=== PATIENT | male | born 1980 | race Caucasian/White ===

== ENCOUNTER 2023-02-05 08:33 | Day surgery (SDC) | payer BC, SELFPAY ==
--- NOTE | 2023-02-03 15:00 | P.CONAN_ITS ---
Documented by User: Valerie Carson NP 02/03/23 15:01 HPI - Anesthesia Eval Consult details Narrative: 42yo M for Colonoscopy [facility] Past Medical History Medical History Ulcerative colitis Surgical History Surgical History Hx of knee surgery H/O rhinoplasty Hx of colonoscopy Social History Social History Patient Tobacco Use Status: Never used Tobacco Meds Allergies Allergy/AdvReac Type Severity Reaction Status Date / Time penicillin V Allergy Unknown rash Verified 04/06/15 00:00 bee stings Allergy Unknown anaphylaxis Uncoded 04/06/15 00:00 Codeine Sulfate Allergy Unknown hives Uncoded 04/06/15 00:00 Inapsine Allergy Unknown hives Uncoded 04/06/15 00:00 morphine Allergy Unknown rash Uncoded 04/06/15 00:00 NSAID Allergy Unknown GIB Uncoded 04/06/15 00:00 Home Medications Medication Instructions Recorded Confirmed Last Taken Type Canasa 02/03/23 Unknown History mesalamine 0.375 gram 1.5 g PO DAILY 02/03/23 02/03/23 Unknown History capsule,extended release 24 hr Exam Exam Date and Time: February 03, 2023 1500 Assessment and Plan Assessment Anesthesia Assessment: Chart Reviewed Documented by User: Kim Gibbs MD 02/05/23 10:08 [facility] Active Problems Active Problems: No pertinent cardiac or respiratory history Past Medical History Medical History Ulcerative colitis Family History Family history of problems with anesthesia: No Surgical History Surgical History Hx of knee surgery H/O rhinoplasty Hx of colonoscopy History of Problems with Anesthesia: No Social History Social History Patient Tobacco Use Status: Never used Tobacco Meds Allergies Allergy/AdvReac Type Severity Reaction Status Date / Time penicillin V Allergy Unknown rash Verified 04/06/15 00:00 bee stings Allergy Unknown anaphylaxis Uncoded 04/06/15 00:00 Codeine Sulfate Allergy Unknown hives Uncoded 04/06/15 00:00 Inapsine Allergy Unknown hives Uncoded 04/06/15 00:00 morphine Allergy Unknown rash Uncoded 04/06/15 00:00 NSAID Allergy Unknown GIB Uncoded 04/06/15 00:00 Home Medications Medication Instructions Recorded Confirmed Last Taken Type Canasa 02/03/23 Unknown History mesalamine 0.375 gram 1.5 g PO DAILY 02/03/23 02/03/23 Unknown History capsule,extended release 24 hr Exam Height,Weight and Vital Signs: Height 5 ft 6 in Weight 81.647 kg Vital Signs Temp Pulse Resp BP Pulse Ox O2 Del Method 02/05/23 08:59 97.9 F 68 16 120/76 98 Room Air Airway Mallampati Class: II TM Dist: >3cm Neck ROM: Full Loose/Missing/Broken Teeth: No (Crowns back left bottom. Denies broken, loose, missing teeth) Heart: RRR Lungs: CTAB Assessment and Plan Assessment Anesthesia Assessment: Anesthesia Plan Discussed Final Anesthetic Review Family History of Problems with Anesthesia: No History of Problems with Anesthesia: No NPO: Yes ASA Class: II Final Preanesthetic Review: No Changes in Pt Med Stat, Meds/Allgs Chart Reviewed, Consent Obtained/Reviewed and Anes Risks/Benef Reviewed Patient Risk: Low Procedure Risk: Low Assessment/Block/Sedation in SS: Assess/Block/Sedation-SS Anesthetic Plan Anesthetic Plan: MAC: Disposition: Standard PACU
[2023-02-05 08:48] VITALS: BMI 29.0
[2023-02-05 08:54] VITALS: BMI 29.0
[2023-02-05 08:59] VITALS: BP 120/76; PULSE 68; RESP 16; TEMP 36.6; O2SAT 98
[2023-02-05] MEDS: Lactated Ringers 1,000 ML 100 ML IVCONT (09:12)
[2023-02-05 10:50] VITALS: BP 102/55; PULSE 71; RESP 16; TEMP 36.5; O2SAT 97
--- NOTE | 2023-02-05 10:53 | PM.OP ---
Brief Operative Note Date of Service: 02/05/23 Pre-op diagnosis: Ulcerative colitis Post-op diagnosis: other (Same, R/O Dysplasia) Procedure: Colonoscopy to the cecum and TI with biopsies Surgeon: Suleman Solomon MD Anesthesia: MAC Was an Respiratory Therapy Aide used for this Procedure?: No Estimated blood loss (mL): 2.0 Pathology: other (A. Ascending colon B. Transverse colon C. Descending colon D. Sigmoid colon E. Rectum) Condition: stable Disposition: PACU
[2023-02-05 11:05] VITALS: BP 105/61; PULSE 54; RESP 16; O2SAT 97
--- NOTE | 2023-02-05 11:12 | OP_ITS ---
DATE OF SERVICE: 02/05/2023 SURGEON: Suleman Solomon MD INDICATIONS: The patient presents for followup of longstanding ulcerative colitis and colorectal cancer screening. Full consent obtained from him for this, including risks of bleeding and perforation. PREOPERATIVE DIAGNOSIS: Longstanding ulcerative colitis and colorectal cancer screening. POSTOPERATIVE DIAGNOSIS: Longstanding ulcerative colitis and colorectal cancer screening, rule out dysplasia, minimal internal hemorrhoids. PROCEDURE PERFORMED: Colonoscopy to the cecum and terminal ileum with biopsies. ESTIMATED BLOOD LOSS: COMPLICATIONS: ANESTHESIA: Monitored anesthesia care. ASSISTANTS: SPECIMENS: DESCRIPTION OF PROCEDURE: The patient was placed in the left lateral decubitus position. The digital rectal exam revealed no abnormalities. The Olympus video pediatric colonoscope was entered into the rectum and advanced easily to the cecum. Once in the cecum, I did identify normal-appearing cecal pouch with appendiceal orifice and a normal-appearing ileocecal valve. The terminal ileum was cannulated and appeared normal. The scope withdrawn back in the colon. The entire cecum and ileocecal valve appeared normal. The scope was slowly withdrawn assessing all mucosal surfaces carefully. Preparation was excellent. Between 30 and 50 cm was an area of some mildly active colitis. However, the entire colon proximal to that all the way to the cecum and distal to that all the way to the rectum appeared normal. There was no sign of any other areas of colitis, polyps, nor angiodysplasia. Random biopsies were obtained in the ascending colon, transverse colon, descending colon, sigmoid colon and rectum. In the rectum, scope was retroflexed visualizing some minimal internal hemorrhoids, but no other pathology. The rectal mucosa appeared normal. The scope was straightened and withdrawn from the patient. He tolerated the procedure well and was returned to recovery area in stable condition. IMPRESSION: 1. Ulcerative colitis, rule out dysplasia. 2. Minimal internal hemorrhoids. PLAN: The results of biopsies will be checked. Assuming there is no dysplasia, I would recommend a repeat screening colonoscopy in 3 years. He was advised to continue his current regimen of the oral mesalamine and the mesalamine suppository. I advised him to see me in 1 year for followup office visit. He will call sooner as needed. He was advised to avoid all aspirin and NSAIDs long-term due to the underlying colitis. MD ANNE Huddleston/SUMMER / [phone]
[2023-02-05 11:20] VITALS: BP 125/85; PULSE 66; RESP 16; TEMP 36.5; O2SAT 100
== END 2023-02-05 12:20 | disposition home or self-care (01) ==
PROVIDERS: PCP Internal Medicine; Visit Provider Internal Medicine
PROC: 0DJD8ZZ Inspection of Lower Intestinal Tract, Via Natural or Artificial Opening Endoscopic (ICD-10-PCS; CPT 45378; principal; 2023-02-05 09:40)
DX: K51.90 Ulcerative colitis, unspecified, without complications (principal); K64.8 Other hemorrhoids; Z79.899 Other long term (current) drug therapy
CPT/HCPCS: 45380; 88305; J2250

== ENCOUNTER 2024-01-24 21:04 | Emergency (ER) | payer BC, SELFPAY ==
--- NOTE | 2024-01-24 | ECG_ITS ---
Test Reason : SYNCOPE Blood Pressure : / mmHG Vent. Rate : 070 BPM Atrial Rate : 070 BPM P-R Int : 158 ms QRS Dur : 090 ms QT Int : 400 ms P-R-T Axes : 053 079 035 degrees QTc Int : 432 ms Normal sinus rhythm Normal ECG No previous ECGs available Referred By: Generic ED Physician Electronically Signed By:PRAVEEN PLUMMER
--- NOTE | ~2024-01-24 | CT_ITS ---
EXAMINATION: CT HEAD WITHOUT CONTRAST CLINICAL INFORMATION: Syncope. Headache. COMPARISON: None available. TECHNIQUE: Contiguous axial imaging was performed from the skull base to vertex without intravenous administration of contrast. This CT examination was performed using dose optimization techniques as appropriate, variously including the following: *Automated exposure control *Adjustment of mA and/or kV according to patient size (this includes techniques or standardized protocols for targeted exams where dose is matched to indication/reason for exam; i.e. extremities or head) *Use of iterative reconstruction technique DLP: 678 mGy-cm FINDINGS: There is no acute intracranial hemorrhage. There is no evidence of acute/subacute cerebral or cerebellar infarction. There is no mass effect or midline shift. There is no extra-axial fluid collection. The ventricles are normal in size. The orbits are symmetric and within normal limits. The calvarium is intact. The visualized paranasal sinuses are well-aerated. Mastoid air cells are clear. CT/CT head/brain wo IV con IMPRESSION: No acute intracranial abnormality. Electronically signed by: Gerry Lehman DO 01/24/2024 11:52 PM EDT
--- NOTE | ~2024-01-24 | XR_ITS ---
EXAMINATION: XR CHEST CLINICAL INFORMATION: Syncope. COMPARISON: None available. TECHNIQUE: Frontal view of the chest was obtained. FINDINGS: The heart is normal in size. There are hazy opacities at the lung bases which may represent subsegmental atelectasis. No dense consolidation. No large pleural effusion. No pneumothorax. No acute osseous abnormality. XR/XR chest 1V IMPRESSION: Hazy opacities at the lung bases for which subsegmental atelectasis is suspected. Electronically signed by: Gerry Lehman DO 01/24/2024 11:54 PM EDT
[2024-01-24 21:13] VITALS: BP 111/72; PULSE 74; RESP 17; TEMP 36.6; O2SAT 100; BMI 29.0
--- NOTE | 2024-01-24 21:22 | ED_ITS ---
HPI - General Adult General Chief complaint: Syncope Stated complaint: loss consciousness about 1 hr ago/out for a minute Time Seen by Provider: 01/24/24 22:07 Source: patient and family (, Bea) Mode of arrival: ambulatory Limitations: no limitations History of Present Illness ED Provider: Dr. Valentin Scott HPI narrative: 43-year-old male with no significant past medical history who presents emergency department for evaluation of a syncopal episode. The patient states that he rarely uses marijuana edibles but took a marijuana gummy at 17:00 hours. He states he was at dinner from 18:00 hours to 1900 hours. He states that around 19:00 hours he felt like the room was spinning. According to his , he began to slurry speech and then he lost consciousness. There friend, who is a police academy program coordinator noted that the patient was fully unconscious. He was placed on the floor and did have a palpable pulse which became stronger when he woke up. The states that he was loss of consciousness lasted approximately 1 minute. When he woke up he did not know where he was and had no memory of the events. He initially was confused but then his speech was comprehensible and he was back to normal. There was no tremors noted by the patient's . There was no postictal period noted. The patient's point of care glucose was 102. The patient initially refused transport to the hospital. When his was driving them home patient felt ill again, had nausea and vomiting. He then felt lethargic therefore his brought him to the emergency department for evaluation. Patient states he has had at least 3 other syncopal episodes in the past over the last 5-10 years. Three these episodes were triggered by pain. Patient states that he exercises daily in his had any significant change in his ability to exercise. He has had no exertional chest pain. He states he did have 1 episode of chest pain at work but he believes it was related to stress. He states that sometime earlier in the week he did have 1 episode of vertigo like symptoms which resolved after minutes. Related Data Home Medications ?Medication ?Instructions ?Recorded ?Confirmed Canasa 02/03/23 mesalamine 0.375 gram 1.5 g PO DAILY 02/03/23 02/03/23 capsule,extended release 24 hr Allergies Allergy/AdvReac Type Severity Reaction Status Date / Time penicillin V Allergy Unknown rash Verified 01/24/24 21:18 bee stings Allergy Unknown anaphylaxis Uncoded 01/24/24 21:18 Codeine Sulfate Allergy Unknown hives Uncoded 01/24/24 21:18 Inapsine Allergy Unknown hives Uncoded 01/24/24 21:18 morphine Allergy Unknown rash Uncoded 01/24/24 21:18 NSAID Allergy Unknown GIB Uncoded 01/24/24 21:18 Review of Systems 2 Review of Systems: Social history: The patient was in process assistant fire services plumber. He was in his Bea is here in the emergency department. His father is Dr. Aggarwal who was an ob gyn on staff here at [facility]. Patient denies tobacco use. He states that he drinks alcohol once a month. He states that he rarely uses marijuana products. PMFSH Past Medical History Medical History Ulcerative colitis Surgical History Hx of knee surgery H/O rhinoplasty Hx of colonoscopy Social History Social History Patient Tobacco Use Status: Never used Tobacco Advance Directives: No Advance Directives Information Provided: Yes Do you have a plan to hurt others: No Plan Physical Exam ED Vital Signs: Vital Signs - 24 hr 01/24/24 21:13 Temperature 97.9 F Pulse Rate 74 Respiratory Rate 17 Blood Pressure 111/72 Pulse Oximetry 100 Oxygen Delivery Method Room Air BMI result Body Mass Index 29.0 Vital signs were normal Exam: General: Awake, alert in no distress Head: Normocephalic, atraumatic EENT: PERRL, Lids normal, sclera normal, conjunctiva normal, nose normal , ears normal, throat without erythema or exudates Neck: Supple, no adenopathy Lung: breath sounds symmetric, no wheezing, rales or rhonchi Chest: symmetric movement, nontender Heart: regular rate and rhythm, normal S1, S2 no murmurs or rubs Abdomen: soft, non-tender, nondistended, normal bowel sounds Back: no vertebral tenderness, no CVAT Extremities: no deformities, moves all extremities symmetrically Neuro: General: Awake, alert, in no distress, answers all questions appropriately Cranial nerves: Cranial nerves 2-12 are intact Strength: 5/5 symmetric in upper and lower extremities. Cerebellar: Good cuxeuz-td-haxl-to-finger, good rapid finger movement, normal heel to hennessy. Able to stand without difficulty. Psych: Pleasant, cooperative Course Course Course Narrative: RME performed by Azalia Jorge PA-C. Patient is a 43 year old assigned male at presenting to the emergency department after a syncopal episode. Patient states he was out to dinner when he had a syncopal episode and passed out for at least a minute. Has an extensive familial cardiac history. Continues to feel weird. Detailed physical exam and review of systems are deferred to the psychiatric clinician. EKG, labs, imaging, and swabs ordered. fuse cup expander aware. Medications Administered Discontinued Medications Generic Name Dose Route Start Last Admin Trade Name Freq PRN Reason Stop Dose Admin Sodium Chloride 1,000 mls @ 999 mls/hr 01/24/24 22:42 01/24/24 23:44 Ns IV 01/24/24 23:42 999 mls/hr .Q1H1M STA Administration Medical Decision Making Medical Decision Making MDM Narrative: 43-year-old male with no significant past medical history who presents emergency department for evaluation of a syncopal episode. The patient states that he rarely uses marijuana edibles but took a marijuana gummy at 17:00 hours. Patient then had a syncopal episode at around 19:00 hours witnessed by his and a friend who was a police academy program coordinator. The patient had loss of consciousness for 1 minute. Patient had palpable pus which was stronger when he woke up according to the police academy program coordinator. Paramedics noted that the patient had a point of care glucose of 102. Patient initially refused transport but when he was being driven home by his he had an episode of lightheadedness, nausea and vomiting and felt weak after this event so he came to the emergency department. Patient was had 3 syncopal episodes in the past triggered by pain. Patient's vital signs were normal. Physical examination including a normal neurologic exam and normal cerebellar exam Differential diagnosis: ?Includes but is not limited to tachyarrhythmia, bradyarrhythmia, myocardial infarction, myocardial ischemia, stroke, seizure, vertigo, vasovagal syncope, anemia, electrolyte abnormalities, dehydration, adverse reaction to edible THC product Course: 23:14 My interpretation patient's laboratory evaluation as follows: WBC elevated 13,200. No anemia with an H&H of 14 and 44.9. BUN was normal at 13. Creatinine was elevated 1.49. GFR was 52. Troponin detectable but not elevated at 4.2. My independent interpretation patient's chest x-ray and CT scan of the brain without IV contrast is as follows: Chest x-ray-no acute disease. CT scan of the brain-no stroke, bleed or mass effect Patient's 12 EKG was unremarkable. Patient's presentation is most likely secondary to vasovagal syncope triggered by the THC edible and dehydration based on his elevated creatinine. I will check a 3 hour troponin at 01:00 hours. I also ordered urinalysis to rule out protein area as the cause of his elevated creatinine. Patient was given normal saline 1 L IV and will be kept on a cardiac and O2 saturation monitor while he is here in the emergency department. 01:51 Patient's repeat 3 hour troponin was 2.7 which is reassuring suggesting the he did not have myocardial injury is the cause of his syncopal episode. Patient has urine revealed trace protein and elevated specific gravity. I did discuss these findings with the patient and his . The patient's syncope was most likely vasovagal triggered by the THC edible. Patient was advised to avoid these in the future. He was given printed and verbal instructions and discharged home. Admission/Observation Consideration of admission/observation: Escalation of care including admission/observation considered (Yes) Lab Data MDM Lab Attestation statement: I reviewed the patient's lab results. 01/24/24 21:51 01/24/24 21:51 Labs: Lab Results 01/24/24 01/24/24 01/25/24 Range/Units 21:51 23:51 01:04 WBC 13.2 H (4.8-10.8) X10*3/uL RBC 5.26 (4.60-5.80) X10*6/uL Hgb 14.8 (14.0-18.0) g/dl Hct 44.9 (42.0-52.0) % MCV 85.4 (80.0-98.0) fL MCH 28.1 (27.0-33.0) pg MCHC 33.0 (31.0-36.0) g/dl RDW 12.6 (11.0-16.0) % Plt Count 234 (160-400) X10*3/uL MPV 10.8 (9.4-12.4) fL Immature Gran % (Auto) 0.5 H (0.0-0.4) % Neut % (Auto) 84.9 H (45-73) % Lymph % (Auto) 8.6 L (20-40) % [place] % (Auto) 5.2 (2-11) % Eos % (Auto) 0.3 (0-4) % Baso % (Auto) 0.5 (0-2) % Lymph # (Auto) 1.1 L (1.2-4.9) X10*3/uL [place] # (Auto) 0.7 (0.1-1.2) X10*3/uL Eos # (Auto) 0.0 (0.0-0.4) X10*3/uL Baso # (Auto) 0.1 (0.0-0.2) X10*3/uL Abs Immat Gran (auto) 0.07 H (0.00-0.03) X10*3/uL Absolute Neuts (auto) 11.2 H (2.0-8.3) x10*3/uL Absolute Nucleated RBC 0.000 (0.0-0.012) X10*3/uL Nucleated RBC % (auto) 0.0 (0.0-0.2) /100WBC Sodium 141 (135-145) mmol/L Potassium 4.0 (3.3-5.1) mmol/L Chloride 107 (96-108) mmol/L Carbon Dioxide 28 (22-29) mmol/L Anion Gap 10 L (12-20) BUN 13 (9-16) mg/dL Creatinine 1.49 H (0.5-1.4) mg/dL Estim Creat Clear Calc 65.4 Estimated GFR 52 Random Glucose 125 H (60-115) mg/dL Calcium 9.4 (8.4-10.2) mg/dL Magnesium 2.1 (1.6-2.6) mg/dL Total Bilirubin 0.8 (0.0-1.0) mg/dL AST 18 (5-37) U/L ALT 10 (0-40) U/L Alkaline Phosphatase 61 (39-117) U/L Total Creatine Kinase 105 (38-174) U/L Troponin I High Sens 4.2 2.7 (<3.5-35.0) ng/L Total Protein 7.1 (6.5-8.0) g/dL Albumin 4.2 (3.5-5.0) g/dL Urine Color Yellow Urine Appearance Cloudy Urine pH 8.5 (5.0-9.0) Ur Specific [place] >= 1.030 H (1.005-1.025) Urine Protein Trace (Neg-Trace) mg/dL Urine Glucose (UA) Negative (Negative) mg/dL Urine Ketones Trace (Negative) mg/dL Urine Blood Negative (Negative) Urine Nitrite Negative (Negative) Ur Leukocyte Esterase Negative (Negative) Independent Interpretation I performed an independent interpretation of an: EKG Interpretation: My interpretation the patient's 12 EKG done at 21:25 hours is as follows: Normal sinus rhythm rate of 70, normal VA interval, QRS duration and QTC interval, no ST segment elevation, no ST segment depression, no significant T- wave abnormalities, no PACs, no PVCs-this is a normal EKG. My independent interpretation patient's chest x-ray is as follows: No acute disease Radiology Impression Discussion of test interpretation with radiology: I have reviewed the radiologist's reading. Radiologist Impression: XR chest 1V IMPRESSION: Hazy opacities at the lung bases for which subsegmental atelectasis is suspected. Dictated By: Gerry Lehman Jr, DO Independent Historian Clinical information obtained from an independent historian. History obtained from or confirmed by: Spouse Discharge Plan Discharge Clinical Impression: Vasovagal syncope Patient Disposition: Home, Self-Care Additional Instructions: Your blood work did reveal a slight elevation in your creatinine of 1.49 (upper limit of normal is 1.4). Your urinalysis revealed trace protein which is reassuring and does not suggest that you have kidney disease as the cause of your passing out. Your high sensitive troponin I (marker of heart damage) was 4.2 and 3 hours later was 2.7 , which is normal and suggest that you did not have heart injury/heart attack as the cause of your passing out. You most likely had a vasovagal syncope (fainting) triggered by the THC edible. I recommend that you avoid THC in the future since this could cause you to have another syncopal episode. Follow-up with your doctor in 2 days. Please return to the emergency department if your symptoms get worse or if you develop any symptoms that are concerning to you. Prescriptions: No Action mesalamine 0.375 gram capsule,extended release 24hr 1.5 g PO DAILY [facility]asa Print Language: Uzbek
[2024-01-24 21:56] LABS: MANUAL DIFF FLAG NO
[2024-01-24 22:01] LABS: Basophils Absolute Auto 0.1 X10*3/uL (0.0-0.2); Basophils Percent Auto 0.5 % (0-2); Eosinophils Percent Auto 0.3 % (0-4); Hematocrit 44.9 % (42.0-52.0); Hemoglobin 14.8 g/dl (14.0-18.0); Imm Gran Abs Auto 0.07 X10*3/uL (0.00-0.03); Imm Gran Pct Auto 0.5 % (0.0-0.4); Lymphocytes Absolute Auto 1.1 X10*3/uL (1.2-4.9); Lymphocytes Percent Auto 8.6 % (20-40); Mean Corpuscular Hemoglobin 28.1 pg (27.0-33.0); Mean Corpuscular Volume 85.4 fL (80.0-98.0); Mean Platelet Volume 10.8 fL (9.4-12.4); Monocytes Absolute Auto 0.7 X10*3/uL (0.1-1.2); Monocytes Percent Auto 5.2 % (2-11); Neutrophils Absolute Auto 11.2 x10*3/uL (2.0-8.3); Neutrophils Percent Auto 84.9 % (45-73); Platelet Count 234 X10*3/uL (160-400); Red Blood Count 5.26 X10*6/uL (4.60-5.80); Red Cell Distribution Width 12.6 % (11.0-16.0); White Blood Count 13.2 X10*3/uL (4.8-10.8)
--- NOTE | 2024-01-24 22:10 | ED_ITS ---
HPI - Syncope General Chief Complaint: Syncope Stated Complaint: loss consciousness about 1 hr ago/out for a minute Time Seen by Provider: 01/24/24 22:07 History of Present Illness ED Provider: Dr. Valentin Scott HPI narrative: this is a duplicate chart. Related Data Home Medications ?Medication ?Instructions ?Recorded ?Confirmed Canasa 02/03/23 mesalamine 0.375 gram 1.5 g PO DAILY 02/03/23 02/03/23 capsule,extended release 24 hr Allergies Allergy/AdvReac Type Severity Reaction Status Date / Time penicillin V Allergy Unknown rash Verified 01/24/24 21:18 bee stings Allergy Unknown anaphylaxis Uncoded 01/24/24 21:18 Codeine Sulfate Allergy Unknown hives Uncoded 01/24/24 21:18 Inapsine Allergy Unknown hives Uncoded 01/24/24 21:18 morphine Allergy Unknown rash Uncoded 01/24/24 21:18 NSAID Allergy Unknown GIB Uncoded 01/24/24 21:18 PMFSH Past Medical History PMFSH Narrative: social history: He denies tobacco use. He occasionally drinks alcohol. He rarely uses marijuana products. Medical History Ulcerative colitis Surgical History Hx of knee surgery H/O rhinoplasty Hx of colonoscopy Social History Social History Patient Tobacco Use Status: Never used Tobacco Advance Directives: No Advance Directives Information Provided: Yes Do you have a plan to hurt others: No Plan Physical Exam 2 Vital Signs: Vital Signs: Last Vital Signs Temp 98.3 F 01/25/24 06:13 Pulse 72 01/25/24 06:13 Resp 13 01/25/24 06:13 BP 105/67 01/25/24 06:13 Pulse Ox 97 01/25/24 06:13 O2 Del Method Room Air 01/25/24 06:13 BMI result Body Mass Index 29.0 Medications Administered Discontinued Medications Generic Name Dose Route Start Last Admin Trade Name Freq PRN Reason Stop Dose Admin Sodium Chloride 1,000 mls @ 999 mls/hr 01/24/24 22:42 01/24/24 23:44 Ns IV 01/24/24 23:42 999 mls/hr .Q1H1M STA Administration Medical Decision Making Lab Data 01/24/24 21:51 01/24/24 21:51 Labs: Lab Results 01/24/24 01/24/24 01/25/24 Range/Units 21:51 23:51 01:04 WBC 13.2 H (4.8-10.8) X10*3/uL RBC 5.26 (4.60-5.80) X10*6/uL Hgb 14.8 (14.0-18.0) g/dl Hct 44.9 (42.0-52.0) % MCV 85.4 (80.0-98.0) fL MCH 28.1 (27.0-33.0) pg MCHC 33.0 (31.0-36.0) g/dl RDW 12.6 (11.0-16.0) % Plt Count 234 (160-400) X10*3/uL MPV 10.8 (9.4-12.4) fL Immature Gran % (Auto) 0.5 H (0.0-0.4) % Neut % (Auto) 84.9 H (45-73) % Lymph % (Auto) 8.6 L (20-40) % [place] % (Auto) 5.2 (2-11) % Eos % (Auto) 0.3 (0-4) % Baso % (Auto) 0.5 (0-2) % Lymph # (Auto) 1.1 L (1.2-4.9) X10*3/uL [place] # (Auto) 0.7 (0.1-1.2) X10*3/uL Eos # (Auto) 0.0 (0.0-0.4) X10*3/uL Baso # (Auto) 0.1 (0.0-0.2) X10*3/uL Abs Immat Gran (auto) 0.07 H (0.00-0.03) X10*3/uL Absolute Neuts (auto) 11.2 H (2.0-8.3) x10*3/uL Absolute Nucleated RBC 0.000 (0.0-0.012) X10*3/uL Nucleated RBC % (auto) 0.0 (0.0-0.2) /100WBC Sodium 141 (135-145) mmol/L Potassium 4.0 (3.3-5.1) mmol/L Chloride 107 (96-108) mmol/L Carbon Dioxide 28 (22-29) mmol/L Anion Gap 10 L (12-20) BUN 13 (9-16) mg/dL Creatinine 1.49 H (0.5-1.4) mg/dL Estim Creat Clear Calc 65.4 Estimated GFR 52 Random Glucose 125 H (60-115) mg/dL Calcium 9.4 (8.4-10.2) mg/dL Magnesium 2.1 (1.6-2.6) mg/dL Total Bilirubin 0.8 (0.0-1.0) mg/dL AST 18 (5-37) U/L ALT 10 (0-40) U/L Alkaline Phosphatase 61 (39-117) U/L Total Creatine Kinase 105 (38-174) U/L Troponin I High Sens 4.2 2.7 (<3.5-35.0) ng/L Total Protein 7.1 (6.5-8.0) g/dL Albumin 4.2 (3.5-5.0) g/dL Urine Color Yellow Urine Appearance Cloudy Urine pH 8.5 (5.0-9.0) Ur Specific [place] >= 1.030 H (1.005-1.025) Urine Protein Trace (Neg-Trace) mg/dL Urine Glucose (UA) Negative (Negative) mg/dL Urine Ketones Trace (Negative) mg/dL Urine Blood Negative (Negative) Urine Nitrite Negative (Negative) Ur Leukocyte Esterase Negative (Negative) Independent Interpretation I performed an independent interpretation of an: EKG Interpretation: My independent interpretation the patient's 12 EKG done at 21:25 hours is as follows: Normal sinus rhythm with a rate of 70, normal ID interval, QRS duration QTC interval no ST segment elevation, no ST segment depression, no PACs, no PVCs. This is a normal EKG. Discharge Plan Discharge Clinical Impression: Vasovagal syncope Patient Disposition: Home, Self-Care Additional Instructions: Your blood work did reveal a slight elevation in your creatinine of 1.49 (upper limit of normal is 1.4). Your urinalysis revealed trace protein which is reassuring and does not suggest that you have kidney disease as the cause of your passing out. Your high sensitive troponin I (marker of heart damage) was 4.2 and 3 hours later was 2.7 , which is normal and suggest that you did not have heart injury/heart attack as the cause of your passing out. You most likely had a vasovagal syncope (fainting) triggered by the THC edible. I recommend that you avoid THC in the future since this could cause you to have another syncopal episode. Follow-up with your doctor in 2 days. Please return to the emergency department if your symptoms get worse or if you develop any symptoms that are concerning to you. Prescriptions: No Action mesalamine 0.375 gram capsule,extended release 24hr 1.5 g PO DAILY [facility] Interventions: ED Discharge Assessment Last Done: 01/25/24 06:13 Discharge Date/Time: 01/25/24 02:30 Print Language: Bulgarian
[2024-01-24 22:16] LABS: Alanine Aminotransferase 10 U/L (0-40); Albumin Level 4.2 g/dL (3.5-5.0); Alkaline Phosphatase 61 U/L (39-117); Anion Gap 10 (12-20); Aspartate Amino Transferase 18 U/L (5-37); Bilirubin Total 0.8 mg/dL (0.0-1.0); Blood Urea Nitrogen 13 mg/dL (9-16); Calcium 9.4 mg/dL (8.4-10.2); Carbon Dioxide 28 mmol/L (22-29); Chloride 107 mmol/L (96-108); Creatinine Clr Calc Pharmacy 65.4; Estimated Glomerular Filt Rate 52; Glucose Random 125 mg/dL (60-115); Magnesium 2.1 mg/dL (1.6-2.6); Sodium 141 mmol/L (135-145); Total Protein 7.1 g/dL (6.5-8.0)
[2024-01-24 22:23] LABS: Troponin-I High Sensitivity 4.2 ng/L (<3.5-35.0)
[2024-01-24 22:42] VITALS: PULSE 75; O2SAT 98
[2024-01-24] MEDS: 0.9 % Sodium Chloride 1,000 ML 999 ML IV (23:44)
[2024-01-25] LABS: Appearance Urine Cloudy; Color Urine Yellow; Glucose Urine UA Negative (Negative); Leukocyte Esterase Urine Negative (Negative); Nitrite Urine Negative (Negative); PH 8.5 (5.0-9.0); Specific Gravity - Urine >= 1.030 (1.005-1.025); Urine Blood Negative (Negative); Urine Ketones Trace mg/dL (Negative); Urine Protein Trace mg/dL (Neg-Trace)
[2024-01-25 01:29] LABS: Troponin-I High Sensitivity 2.7 ng/L (<3.5-35.0)
[2024-01-25 02:25] VITALS: BP 105/67; PULSE 72; RESP 13; TEMP 36.8; O2SAT 97
[2024-01-25 06:13] VITALS: BP 105/67; PULSE 72; RESP 13; TEMP 36.8; O2SAT 97
== END 2024-01-25 02:30 | disposition home or self-care (01) ==
PROVIDERS: Emergency Provider Emergency Medicine Emergency Medical Services; PCP Internal Medicine
DX: R55 Syncope and collapse (principal)
CPT/HCPCS: 36415; 70450; 71045; 80053; 81003; 82550; 83735; 84484; 85025; 93005; 99284; 99285